=== PATIENT | female | born 1995 | race African-American/Black ===

== ENCOUNTER 2022-12-21 13:15 | Emergency (ER) | payer OTHER ==
[2022-12-21 13:50] LABS: Bilirubin Neg (Negative); Blood, Urine Negative (Negative); Clarity Clear (Clear); Glucose, Urine (Dipstick) Normal (Negative); Ketone, Urine Negative (Negative); Leukocyte Negative (Negative); Nitrite Negative (Negative); Protein, Urine (Dipstick) 15 mg/dl (Neg-Trace); Specific Gravity, Urine 1.025 (1.005-1.030)
[2022-12-21 13:52] LABS: Pregnancy Test - Urine (BHCG) POSITIVE (Negative); Pregu Control Background? CLEAR/WHITE (CLR/WHITE); Pregu Control Bar Appear? YES (CONTROL BAR); Specific Gravity 1.025 (1.002-1.036)
[2022-12-21 13:58] LABS: CAUTI Indications for Culture Pregnancy; RBC/HPF 0-3 HPF (0-3)
[2022-12-21 14:02] LABS: Bacteria/HPF 2+ HPF (None Seen); Mucous/LPF 4+ LPF (<2+)
[2022-12-21 14:05] LABS: Urine Culture Reflex Yes Yes
[2022-12-21 14:26] LABS: #Eosinphils 0.1 10x3/uL (0.0-0.5); #Monocytes 0.4 10x3/uL (0.0-1.1); #Neutrophils 3.7 10x3/uL (1.5-8.4); %Basophils 0.2 % (0.0-2.0); %Eosinophils 1.4 % (0.0-6.0); %Lymphocytes 19.4 % (18.0-47.0); %Monocytes 7.4 % (0.0-10.0); %Neutrophils 71.2 % (40.0-75.0); Hematocrit 39.4 % (34.9-44.5); Mean Corpuscular Hemoglobin 28.1 pg (27.0-33.0); Mean Corpuscular Volume 85.1 fl (81.6-98.3); Mean Platelet Volume 11.2 fl (7.4-10.4); Platelet Count 177 10x3/uL (150-450); RBC Distribution Width 12.1 % (11.5-14.5); Red Blood Cell (RBC) Count 4.63 10x6/uL (3.90-5.03); White Blood Cell (WBC) Count 5.2 10x3/uL (3.5-10.5)
[2022-12-21 14:41] LABS: ALT (SGPT) 20 U/L (8-55); AST (SGOT) 25 U/L (5-34); Albumin 4.1 g/dL (3.5-5.0); Alkaline Phosphatase 56 U/L (40-110); Anion Gap 12 mmol/L (10-20); BUN (Urea Nitrogen) 6 mg/dL (7.0-18.7); Bilirubin, Total 0.8 mg/dL (0.2-1.2); Calc. Creatinine Clearance 0 mL/min (70-130); Calcium 8.8 mg/dL (7.8-10.44); Carbon Dioxide 24 mmol/L (22-29); Chloride 102 mmol/L (98-107); Estimated GFR 108; Glucose 90 mg/dL (70-105); Lipase 13 U/L (8-78); Potassium 3.4 mmol/L (3.5-5.1); Protein, Total 7.1 g/dL (6.0-8.3); Sodium 135 mmol/L (136-145)
[2022-12-21] MEDS ORDERED: Metoclopramide HCl 10 MG/2 ML VIAL ONE (15:39)
== END 2022-12-21 16:46 | disposition home or self-care (01) ==
LOC: CSHERS 13:15
DX: O99.891 Other specified diseases and conditions complicating pregnancy (principal); R10.13 Epigastric pain; Z3A.01 Less than 8 weeks gestation of pregnancy
CPT/HCPCS: 36415; 76705; 76801; 80053; 81001; 81025; 83690; 84702; 85025; 86900; 86901; 87086; 96374; J2765

== ENCOUNTER 2024-02-09 06:28 | Day surgery (SDC) | payer OTHER ==
[2024-02-09 07:07] VITALS: BMI 32.7
[2024-02-09] MEDS ORDERED: hydrALAZINE 20 MG/ML VIAL SLOW IVP PRN (07:50)
[2024-02-09 08:42] LABS: Fetal Membranes Rupture No Membranes Rupture (No Rupture)
[2024-02-09] MEDS: Acetaminophen 500 MG TAB PO SCH (08:54)
== END 2024-02-09 09:36 | disposition home or self-care (01) ==
LOC: CSHLD/OP 06:28
PROVIDERS: ATTEND Family Medicine
DX: O9A.212 Injury, poisoning and certain other consequences of external causes complicating pregnancy, second trimester (principal); Z03.71 Encounter for suspected problem with amniotic cavity and membrane ruled out; O99.891 Other specified diseases and conditions complicating pregnancy; M54.50 Low back pain, unspecified; O99.342 Other mental disorders complicating pregnancy, second trimester; F31.9 Bipolar disorder, unspecified; O99.212 Obesity complicating pregnancy, second trimester; V43.52XA Car driver injured in collision with other type car in traffic accident, initial encounter; Z3A.26 26 weeks gestation of pregnancy
CPT/HCPCS: 76815; 84112; 87480; 87510; 87660; 99285

== ENCOUNTER 2024-03-09 19:30 | Day surgery (SDC) | payer OTHER ==
[2024-03-09 19:59] VITALS: BMI 34.4
[2024-03-09] MEDS ORDERED: hydrALAZINE 20 MG/ML VIAL SLOW IVP PRN (20:36)
[2024-03-09 20:54] LABS: Bilirubin Neg (Negative); Blood, Urine 250 (Negative); Clarity Clear (Clear); Glucose, Urine (Dipstick) Normal (Negative); Ketone, Urine Negative (Negative); Leukocyte Negative (Negative); Nitrite Negative (Negative); Protein, Urine (Dipstick) Negative (Neg-Trace); Specific Gravity, Urine 1.015 (1.005-1.030); Urobilinogen Normal mg/dL (Less than 2)
[2024-03-09 21:05] LABS: Bacteria/HPF Rare-Few HPF (None Seen); RBC/HPF 21-50 HPF (0-3)
[2024-03-09] MEDS ORDERED: Ondansetron ODT 4 MG TAB SL PRN (21:11)
[2024-03-09] MEDS ORDERED: Acetaminophen 500 MG TAB PO SCH (22:45)
== END 2024-03-10 00:40 | disposition home or self-care (01) ==
LOC: CSHLD/OP 19:30
PROVIDERS: ATTEND Family Medicine
DX: O26.853 Spotting complicating pregnancy, third trimester (principal); O36.8130 Decreased fetal movements, third trimester, not applicable or unspecified; O21.2 Late vomiting of pregnancy; O99.891 Other specified diseases and conditions complicating pregnancy; R10.30 Lower abdominal pain, unspecified; O99.713 Diseases of the skin and subcutaneous tissue complicating pregnancy, third trimester; L50.9 Urticaria, unspecified; O34.211 Maternal care for low transverse scar from previous cesarean delivery; Z88.7 Allergy status to serum and vaccine; Z3A.30 30 weeks gestation of pregnancy; Z87.59 Personal history of other complications of pregnancy, childbirth and the puerperium
CPT/HCPCS: 76770; 76817; 76819; 81003; 81015; 87480; 87510; 87660

== ENCOUNTER 2024-04-13 15:15 | Day surgery (SDC) | payer OTHER ==
[2024-04-13] MEDS ORDERED: hydrALAZINE 20 MG/ML VIAL SLOW IVP PRN (15:33)
[2024-04-13 15:45] VITALS: BMI 33.8
== END 2024-04-13 18:30 | disposition home or self-care (01) ==
LOC: CSHLD/OP 15:15
PROVIDERS: ATTEND Student in an Organized Health Care Education/Training Program
DX: O36.8130 Decreased fetal movements, third trimester, not applicable or unspecified (principal); O99.213 Obesity complicating pregnancy, third trimester; O99.343 Other mental disorders complicating pregnancy, third trimester; F30.9 Manic episode, unspecified; O21.2 Late vomiting of pregnancy; O99.891 Other specified diseases and conditions complicating pregnancy; R74.01 Elevation of levels of liver transaminase levels; Z87.59 Personal history of other complications of pregnancy, childbirth and the puerperium
CPT/HCPCS: 76819

== ENCOUNTER 2024-05-05 10:57 | Day surgery (SDC) | payer OTHER ==
[2024-05-05 12:06] VITALS: BMI 36.5
[2024-05-05 14:55] LABS: Fetal Membranes Rupture No Membranes Rupture (No Rupture)
== END 2024-05-05 15:24 | disposition home or self-care (01) ==
LOC: CSHLD/OP 10:57
PROVIDERS: ATTEND Obstetrics & Gynecology
DX: O23.593 Infection of other part of genital tract in pregnancy, third trimester (principal); N89.8 Other specified noninflammatory disorders of vagina; Z03.71 Encounter for suspected problem with amniotic cavity and membrane ruled out; O99.891 Other specified diseases and conditions complicating pregnancy; R10.2 Pelvic and perineal pain; O09.43 Supervision of pregnancy with grand multiparity, third trimester; O34.211 Maternal care for low transverse scar from previous cesarean delivery; O99.213 Obesity complicating pregnancy, third trimester; E66.9 Obesity, unspecified; O99.713 Diseases of the skin and subcutaneous tissue complicating pregnancy, third trimester; L50.8 Other urticaria; O99.343 Other mental disorders complicating pregnancy, third trimester; F31.9 Bipolar disorder, unspecified; F60.3 Borderline personality disorder; O99.313 Alcohol use complicating pregnancy, third trimester; F10.90 Alcohol use, unspecified, uncomplicated; Y90.9 Presence of alcohol in blood, level not specified; Z3A.39 39 weeks gestation of pregnancy; Z87.59 Personal history of other complications of pregnancy, childbirth and the puerperium; Z88.8 Allergy status to other drugs, medicaments and biological substances; Z79.899 Other long term (current) drug therapy
CPT/HCPCS: 84112; 87480; 87510; 87660; 99284

== ENCOUNTER 2024-05-07 09:44 | Inpatient (IN) | payer OTHER ==
[2024-05-07] MEDS ORDERED: Methylergonovine 0.2 MG/ML VIAL IM PRN ×2 (10:18→14:19)
[2024-05-07] MEDS ORDERED: Promethazine HCl 25 MG/ML VIAL IM PRN ×2 (10:18→11:39)
[2024-05-07] MEDS ORDERED: Carboprost 250 MCG/ML AMP IM PRN (10:18)
[2024-05-07] MEDS ORDERED: Diphenoxylate HCl/Atropine Tablet PO PRN (10:18)
[2024-05-07] MEDS ORDERED: Tranexamic Acid 1,000 MG/10 ML VIAL IVP PRN (10:18)
[2024-05-07] MEDS ORDERED: Misoprostol 200 MCG TAB PR PRN ×2 (10:18→14:19)
[2024-05-07] MEDS ORDERED: hydrALAZINE 20 MG/ML VIAL SLOW IVP PRN ×2 (10:18→14:19)
[2024-05-07] MEDS ORDERED: Bicitra 30 ML UDCUP PO PRN (10:18)
[2024-05-07] MEDS ORDERED: Ondansetron PF 4 MG/2 ML Vial IVP PRN ×3 (10:18→11:39)
[2024-05-07] MEDS ORDERED: Oxytocin 30 units/NS 500 ML 500 ML IV SCH ×2 (10:30→14:30)
[2024-05-07 11:01] LABS: Hematocrit 37.9 % (34.9-44.5); Hemoglobin 11.8 g/dL (12.0-15.5); Mean Corpuscular HGB CONC 31.1 g/dL (32.0-36.0); Mean Corpuscular Hemoglobin 26.7 pg (27.0-33.0); Mean Corpuscular Volume 85.7 fL (81.6-98.3); Platelet Count 198 10x3/uL (150-450); RBC Distribution Width 13.2 % (11.5-14.5); Red Blood Cell (RBC) Count 4.42 10x6/uL (3.90-5.03); White Blood Cell (WBC) Count 8.11 10x3/uL (3.5-10.5)
[2024-05-07 11:10] VITALS: BMI 36.5
[2024-05-07] MEDS: Famotidine/PF 20 mg/2ml Vial SLOW IVP PRN (11:24)
[2024-05-07] MEDS: CEFAZOLIN 2 GM in Sodium Chloride 0.9% 100 ML IVPB SCH (11:25)
[2024-05-07] MEDS ORDERED: Moisturizing Cream (Eucerin) 113 GM JAR TOP PRN (11:39)
[2024-05-07] MEDS ORDERED: Naloxone HCl 0.4 mg/ml Vial IV PRN (11:39)
[2024-05-07] MEDS ORDERED: Naloxone HCl 0.4 mg/ml Vial IVP PRN ×2 (11:39)
[2024-05-07] MEDS ORDERED: Meperidine HCl/PF 25 MG (1 mL) VIAL SLOW IVP PRN (11:39)
[2024-05-07] MEDS ORDERED: Communication Order-Pharmacy FS SCH (11:45)
[2024-05-07 11:54] LABS: Syphilis Antibody Nonreactive (Nonreactive); Syphilis Antibody Index 0.09 S/CO (<1.00 Non-Reactive)
[2024-05-07 11:55] LABS: HBsAg Index 0.24 S/CO (0-0.99); Hep B Surf Ag - L&D Non-Reactive S/CO (NonReactive)
[2024-05-07] MEDS: diphenhydrAMINE 50 MG/ML VIAL IVP PRN (13:41)
[2024-05-07] MEDS: Dexamethasone 10 MG/ML VIAL ONE (13:45)
[2024-05-07] MEDS: Ketorolac Tromethamine 30 MG (1 mL) VIAL ONE (13:45)
[2024-05-07] MEDS: Morphine PF 10 MG/10 ML VIAL ONE (13:46)
[2024-05-07] MEDS: Oxytocin 10 UNITS/ML VIAL ONE ×2 (13:46)
[2024-05-07] MEDS: Ondansetron PF 4 MG/2 ML Vial ONE (13:46)
[2024-05-07] MEDS: Ketorolac Tromethamine 30 MG (1 mL) VIAL IVP SCH (13:46)
[2024-05-07] MEDS ORDERED: Boostrix 0.5 ML (Tdap) VIAL (>/=7 yrs of age) IM ONE (14:19)
[2024-05-07] MEDS ORDERED: Methylergonovine 0.2 MG TAB PO PRN (14:19)
[2024-05-07] MEDS: fentaNYL 50 mcg/mL 1 mL Vial SLOW IVP PRN (14:30)
[2024-05-07] MEDS: Ketorolac Tromethamine 30 MG (1 mL) VIAL IVP PRN (17:53)
[2024-05-08 04:14] LABS: Hematocrit 31.3 % (34.9-44.5); Mean Corpuscular HGB CONC 31.9 g/dL (32.0-36.0); Mean Corpuscular Hemoglobin 27.1 pg (27.0-33.0); Mean Corpuscular Volume 84.8 fL (81.6-98.3); Mean Platelet Volume 11.7 fL (7.4-10.4); Platelet Count 196 10x3/uL (150-450); RBC Distribution Width 13.2 % (11.5-14.5); Red Blood Cell (RBC) Count 3.69 10x6/uL (3.90-5.03); White Blood Cell (WBC) Count 15.02 10x3/uL (3.5-10.5)
[2024-05-08] MEDS: HYDROcodone/Acetaminophen 5/325 mg Tablet PO PRN (07:50)
[2024-05-08] MEDS: Enoxaparin 40 MG (0.4 mL) SYRINGE SC SCH (08:12)
[2024-05-08] MEDS: Ibuprofen 800 MG TAB PO SCH (18:59)
[2024-05-08] MEDS: Acetaminophen 325 MG TAB PO SCH (21:40)
[2024-05-09] MEDS: HYDROcodone/Acetaminophen 10/325 mg Tablet PO PRN (00:24)
[2024-05-09 07:58] VITALS: BP 109/58; TEMP 97.6
== END 2024-05-09 14:30 | disposition home or self-care (01) | DRG 788 ==
LOC: CSHLD 09:44 → CSHPP 15:05
PROVIDERS: ADMIT Family Medicine; ATTEND Family Medicine
PROC: 10D00Z1 Extraction of Products of Conception, Low, Open Approach (ICD-10-PCS; principal; 2024-05-07)
DX: O34.211 Maternal care for low transverse scar from previous cesarean delivery (principal); O34.13 Maternal care for benign tumor of corpus uteri, third trimester; D25.2 Subserosal leiomyoma of uterus; Z37.0 Single live birth; Z3A.39 39 weeks gestation of pregnancy; Z88.7 Allergy status to serum and vaccine
CPT/HCPCS: 36415; 51702; 85027; 86780; 86850; 86900; 86901; 87340; J1100; J1200; J1650; J1885; J2274; J2405; J2590; J3010; J3490